=== PATIENT | female | born 2005 | race African-American/Black ===

== ENCOUNTER 2025-05-24 04:16 | Emergency (ER) | payer MEDICAID, OTHER ==
[~2025-05-24] VITALS: Ht 157.5 cm; Wt 63.3 kg
[2025-05-24 04:41] LABS: Mean Corpuscular Hemoglobin 14.4 pg (28.0-32.0)
[2025-05-24 04:43] LABS: Hematocrit 28.9 % (36.0-46.0); Hemoglobin 8.0 g/dL (12.2-16.2); Mean Corpuscular Volume 52.4 fL (80.0-100.0); Nucleated Red Blood Cells % 0.1 %
[2025-05-24 05:05] LABS: Alanine Aminotransferase 19 U/L (7-40); Albumin 4.4 g/dL (3.2-4.8); Alkaline Phosphatase 71 U/L (46-116); Anion Gap 11 (5-15); BUN/Creatinine Ratio 6.8 (10.0-20.0); Bilirubin, Total 0.5 mg/dL (0.2-1.0); Calcium 9.0 mg/dL (8.7-10.4); Chloride 107 mmol/L (98-107); Glucose 98 mg/dL (74-106)
--- NOTE | 2025-05-24 05:08 | ED.PDOC ---
History of Present Illness HPI Comments 20 y/o F presents with c/c of bilateral pelvic and lower abdominal pain. Patient endorses on sudden, unprovoked, and atraumatic onset of pain, yesterday morning, which has been, progressively, worsening since. Denies any nausea, vomiting, diarrhea, fever, chills, or further associated symptoms. Chief Complaint: Pelvic Pain Time Seen by MD: 04:30 Reviewed Notes: Nurses Notes, Medications, Allergies Allergies: Coded Allergies: NO KNOWN ALLERGIES (Unverified , 05/24/25) Information Source: Patient Mode of Arrival: Ambulatory Severity: Moderate Timing: Hours Duration: Since onset Prehospital treatment: None Past Medical History PAST MEDICAL HISTORY: Denies Surgical History: Denies all surgeries PRODUCT DEVELOPMENT ASSISTANT History: Denies all PRODUCT DEVELOPMENT ASSISTANT Hx Family History Family History: Unknown Social History Smoker: Non-Smoker Alcohol: Denies ETOH Use Drugs: Denies Drug Use Lives In: Home All Other Systems: Reviewed and Negative (As per HPI) Physical Exam General Appearance: No Apparent Distress, Normal HEENT: Normal ENT Inspection, Pharynx Normal, TMs Normal Neck: Full Range of Motion, Non-Tender, Normal, Normal Inspection Respiratory: Chest Non-Tender, Lungs Clear, No Accessory Muscle Use, No Respiratory Distress, Normal Breath Sounds Cardiovascular: No Edema, No JVD, No Murmur, No Gallop, Normal Peripheral Pulses, Regular Rate/Rhythm Breast Exam: Deferred Gastrointestinal: No Organomegaly, No Pulsatile Mass, Normal Bowel Sounds, Soft, Suprapubic (tenderness ), Tenderness (lower abdominal region ) Genitalia: Deferred Pelvic: Other (bilateral tenderness, left greater than right ) Rectal: Deferred Extremities: No calf tenderness, Normal capillary refill, Normal inspection, Normal range of motion, Non-tender, No pedal edema Musculoskeletal : Apperance: Normal Neurologic: Alert, restaurant server II-XII nml as Tested, No Motor Deficits, Normal Affect, Normal Mood, No Sensory Deficits Cerebellar Function: Normal Reflexes: Normal Skin: Dry, Normal Color, Warm Lymphatic: No Adenopathy Was a procedure done? Was a procedure done?: No Differential Dx Considerations may include: PID, ovarian cysts/torsion, ectopic , appendicitis, nephrolithiasis, cystitis, pyelonephritis, among others X-Ray, Labs, Meds, VS Vital Signs Date Time Temp Pulse Resp B/P (MAP) Pulse Ox O2 Delivery O2 Flow Rate FiO2 10/20/25 06:36 88 17 127/76 05/24/25 06:07 96 16 119/89 05/24/25 06:00 96 20 100 Room Air 05/24/25 06:00 98.7 96 20 119/83 (95) 100 98.7 05/24/25 04:18 98.7 121 22 143/116 100 98.7 Lab Test 05/24/25 04:40 05/24/25 04:31 Range/Units Urine Color Yellow Yellow Urine Clarity Turbid H Clear Urine pH 6.0 5.0-9.0 Urine Specific [place] 1.028 1.001-1.035 Urine Protein 1+ H Negative Urine Ketones 3+ H Negative Urine Blood Negative Negative /uL Urine Nitrite Negative Negative Urine Bilirubin Negative Negative Urine Urobilinogen 2 H Negative mg/dL Urine Leukocyte Esterase Trace Negative /uL Urine RBC None seen 0 - 4 /hpf Urine Microscopic WBC 4 0-5 /HPF Urine Squamous Epithelial Cells Few <5 /hpf Urine Bacteria None seen None Seen /hpf Urine Mucus Few None Seen Urine Glucose Normal Normal mg/dL Urine Test Negative Negative White Blood Count 11.5 H 4.4-10.8 10^3/uL Red Blood Count 5.51 H 4.0-5.20 10^6/uL Hemoglobin 8.0 L 12.2-16.2 g/dL Hematocrit 28.9 L 36.0-46.0 % Mean Corpuscular Volume 52.4 L 80.0-100.0 fL Mean Corpuscular Hemoglobin 14.4 L 28.0-32.0 pg Mean Corpuscular Hemoglobin Concent 27.6 L 32.0-36.0 g/dL Red Cell Distribution Width 23.6 H 11.8-14.3 % Platelet Count 381 140-450 10^3/uL Mean Platelet Volume 8.2 6.9-10.8 fL Neutrophils (%) (Auto) 79.1 37.0-80.0 % Lymphocytes (%) (Auto) 13.9 10.0-50.0 % Monocytes (%) (Auto) 6.1 0.0-12.0 % Eosinophils (%) (Auto) 0.1 0.0-7.0 % Basophils (%) (Auto) 0.8 0.0-2.0 % Neutrophils # (Auto) 9.1 H 1.6-8.6 10 ^3/uL Lymphocytes # (Auto) 1.6 0.4-5.4 10 ^3/uL Monocytes # (Auto) 0.7 0-1.3 10 ^3/uL Eosinophils # (Auto) 0 0-0.8 10 ^3/uL Basophils # (Auto) 0.1 0-0.2 10 ^3/uL Nucleated Red Blood Cells 0.1 % Sodium Level 136 136-145 mmol/L Potassium Level 3.5 3.5-5.1 mmol/L Chloride Level 107 98-107 mmol/L Carbon Dioxide Level 18 L 20-31 mmol/L Anion Gap 11 5-15 Blood Urea Nitrogen 6 L 9-23 mg/dL Creatinine 0.88 0.550-1.02 mg/dL Glomerular Filtration Rate Calc 95 >90 mL/min BUN/Creatinine Ratio 6.8 L 10.0-20.0 Serum Glucose 98 74-106 mg/dL Calcium Level 9.0 8.7-10.4 mg/dL Total Bilirubin 0.5 0.2-1.0 mg/dL Aspartate Amino Transferase (AST) 23 13-40 U/L Alanine Aminotransferase (ALT) 19 7-40 U/L Alkaline Phosphatase 71 46-116 U/L Total Protein 8.3 H 5.7-8.2 g/dL Albumin 4.4 3.2-4.8 g/dL Current Medications Medications (Trade) Dose Ordered Sig/[place] Route Start Time Stop Time Status Last Admin Sodium Chloride 1,000 ml @ 1,000 mls/hr Q1H ONCE IV 05/24/25 04:45 05/24/25 05:44 DC 05/24/25 06:34 Hydromorphone HCl (Dilaudid Injection) 1 mg ONCE ONCE IV 05/24/25 04:45 05/24/25 04:46 DC 05/24/25 06:07 Ondansetron HCl (Zofran) 4 mg ONCE ONCE IV 05/24/25 04:45 05/24/25 04:46 DC 05/24/25 06:05 Time of 1ST Reevaluation: 05:00 Reevaluation 1ST: Unchanged Patient Education/Counseling: Diagnosis, Treatment, Need For Follow Up Family Education/Counseling: No Family Present SEPSIS Sepsis Screen Date sepsis recognized/suspect: May 24, 2025 Time Sepsis recognized/suspect: 0420 Recent Procedure: No On Antibiotic Therapy: No Respiratory Rate >20: No Heart Rate >90: No Temp<36 C (96.8 F) or >38.3 C: No SBP <90 or MAP <65 mmHG: No New Acute Mental Status Change: No Is the patient on CPAP, BIPAP,: No Physician Orders Ct Ab Pel With Iv Con Only (05/24/25 04:33) Vital Signs Date Time Temp Pulse Resp B/P (MAP) Pulse Ox O2 Delivery O2 Flow Rate FiO2 05/24/25 06:36 88 17 127/76 05/24/25 06:07 96 16 119/89 05/24/25 06:00 96 20 100 Room Air 05/24/25 06:00 98.7 96 20 119/83 (95) 100 98.7 05/24/25 04:18 98.7 121 22 143/116 100 98.7 Laboratory Tests Test 05/24/25 04:31 White Blood Count 11.5 10^3/uL (4.4-10.8) H Medications Medications Dose Ordered Sig/[place] Route Start Time Stop Time Status Last Admin Dose Admin Hydromorphone HCl 1 mg ONCE ONCE IV 05/24/25 04:45 05/24/25 04:46 DC 05/24/25 06:07 Ondansetron HCl 4 mg ONCE ONCE IV 05/24/25 04:45 05/24/25 04:46 DC 05/24/25 06:05 Sodium Chloride 1,000 ml @ 1,000 mls/hr Q1H ONCE IV 05/24/25 04:45 05/24/25 05:44 DC 05/24/25 06:34 Departure 1 Departure Time of Disposition: 08:50 (Patient presented with abdominal pain that was concerning for possible appendicits, gastritis, cholecystitis, colitis, gastroenteritis, or orther possible surgical emergency. Data: 1. I ordered and reviewed the result of at least 3 labs including a CBC, BMP, and Urinalysis. 2. I independently interpreted the following tests: CT Abdoment and Pelvis is conc erning for colitis .Risk:This patient has a high risk of morbidity due to further diagnostic testing or treatment and may suffer from an acute abdominal process disorder. Fortunately workup reveals gastroenteritis _ and patient can be safely discharged to home with outpatient follow up.) Impression: Primary Impression: Acute gastroenteritis Disposition: 01 HOME / SELF CARE / HOMELESS Condition: Stable Additional Instructions: You likely have gastroenteritis. It is important to stay well hydrated and well rested. This usually resolves within 1 week. If your symptoms worsen or you have any other concerns please return to the ER. Discharged With: Self Critical Care Note Critical Care Time?: No Stability Stability form required: No Heart Score Heart Score: Heart Score Response (Comments) Value History N/A 0 EKG N/A 0 Age N/A 0 Risk Factors N/A 0 Troponin N/A 0 Total 0 I personally scribed for HEATHER DAWN MD ([email or web address]) on 05/24/25 at 05:07. Electronically submitted by Elvis Cunha ([email or web address]). HEATHER DAWN MD May 24, 2025 05:07 ESTEE WEEKS MD May 24, 2025 08:51
[2025-05-24 05:14] LABS: Blood Urea Nitrogen 6 mg/dL (9-23); Carbon Dioxide 18 mmol/L (20-31); Potassium 3.5 mmol/L (3.5-5.1); Sodium 136 mmol/L (136-145); Total Protein 8.3 g/dL (5.7-8.2)
[2025-05-24] MEDS: ONDANSETRON HCL 4 MG/2 ML VIAL IV ONE (06:05)
[2025-05-24] MEDS: HYDROmorphone HCL 2 MG/ML VL/or syr IV ONE (06:07)
[2025-05-24 06:34] LABS: Urine Protein, UAD 1+ (Negative)
[2025-05-24] MEDS: SODIUM CHLORIDE 0.9% 1,000 ML IV ONE (06:34)
[2025-05-24] MEDS: IOHEXOL 300 MG/ML 100ML BOTTLE IJ ONE (07:36)
--- NOTE | 2025-05-24 08:25 | DVH ---
CLINICAL INFORMATION: Left lower quadrant abdominal pain. TECHNIQUE: Axial CT images of the abdomen and pelvis were obtained after the uneventful administrati on of 100 mL Omnipaque 300 IV contrast. Coronal and sagittal reformatted images were obtained, review ed, and stored. All CT scans at this medical facility are performed using dose modulation techniques as appropriate to a performed exam including the following: Automated exposure control was utilized; adjustment of the MA and/or KV according to patient size; and use of iterative reconstruction [email or web address] ue. CTDIvol = 8.07 mGy DLP = 425.23 mGy-cm COMPARISON: US PELVIS COMPLETE on DOS: 04/22/25, CT ABD/PEL on DOS: 02/21/24 FINDINGS: Lung bases: Lung bases are clear. Liver: Hepatic steatosis. Biliary: No calcified gallstones or biliary ductal dilatation. Spleen: Unremarkable. Pancreas: Unremarkable. No inflammatory changes, ductal dilatation, or mass identified. Adrenal glands: Unremarkable. No mass. Kidneys: No hydronephrosis or mass. Aorta/Vascular: No aneurysm or significant calcification. Lymph Nodes: No mass or lymphadenopathy. Bowel/mesentery: Nonspecific nondilated fluid-filled small bowel loops. No small bowel obstruction. N o free air. Appendix is visualized and appears unremarkable. There is liquid stool in the colon. Pelvic organs: Uterus is anteverted. Small amount of free fluid in the cul-de-sac. Bladder: Unremarkable. No mass. Abdominal wall: No mass or hernia. Bones: No acute fracture or focal intraosseous lesion. IMPRESSION: 1. Nonspecific nondilated fluid-filled small bowel loops with liquid stool in the colon. Findings may be seen with ileus or enterocolitis in the appropriate clinical setting. No small bowel obstruction. 2. Hepatic steatosis. 3. Additional findings as described above.
[2025-05-24 08:55] VITALS: BP 128/79; PULSE 96; RESP 16; TEMP 98.8; O2SAT 100
== END 2025-05-24 08:57 | disposition home or self-care (01) ==
LOC: ER 04:16
DX: K52.9 Noninfective gastroenteritis and colitis, unspecified (principal)
CPT/HCPCS: 36415; 74177; 80053; 81001; 81025; 85025; 96361; 96374; 96375; 99285; J1171; J2405; J7030; Q9967